=== PATIENT | male | born 1970 | race Caucasian/White ===

== ENCOUNTER → 2018-10-09 | Outpatient (CLI) | payer BC ==
--- NOTE | 2018-10-09 09:58 | MRI ---
Study: MRI of the Left Shoulder. Indication: ROTATOR CUFF TEAR Technique: Multiplanar, multi sequence MRI of the left shoulder was obtained without intravenous contrast. Comparison: None. Findings: Moderate hypertrophic AC joint osteoarthritis. Type I acromion with mild lateral downsloping. Small-volume subacromial/subdeltoid bursal fluid. Supraspinatus and infraspinatus tendinosis noted with irregular intermediate grade interstitial tearing extending from the mid supraspinatus tendon insertion to the mid infraspinatus tendon insertion. The tear defect measures approximately 24 mm AP by up to 20 mm transverse as the tear does delaminate medially into the critical zone and myotendinous junction at the level of the anterior infraspinatus tendon. No full-thickness tear or tendon retraction. Mild cystic change of the adjacent greater tuberosity. Subscapularis tendinosis with irregular low-grade interstitial tearing superiorly. Teres minor tendon intact. Rotator cuff musculature normal without atrophy, fatty infiltration, or intramuscular edema. Intracapsular long head biceps tendinosis. Circumferential labral truncation and degeneration, most pronounced.. Minimal glenohumeral joint osteoarthritis with small joint effusion. No acute fracture. Impression: Supraspinatus supraspinatus tendinosis with irregular intermediate grade interstitial tearing throughout both tendons as detailed above. Subscapularis tendinosis with low-grade interstitial tearing superiorly. Intracapsular long head biceps tendinosis. Circumferential labral truncation and degeneration, most pronounced superiorly. Minimal glenohumeral joint osteoarthritis with a small joint effusion. Moderate hypertrophic AC joint osteoarthritis. Electronically signed by: Mc Alarcon MD 10/09/2018 9:56 AM CDT
== END ==
LOC: MRI 06:46
PROVIDERS: ATTEND Family Medicine
DX: M75.122 Complete rotator cuff tear or rupture of left shoulder, not specified as traumatic (principal); M75.41 Impingement syndrome of right shoulder; M19.012 Primary osteoarthritis, left shoulder; M75.22 Bicipital tendinitis, left shoulder

== ENCOUNTER → 2019-02-28 | Outpatient (CLI) | payer BC | LOC: LAB.O 14:54 | PROVIDERS: ATTEND Orthopaedic Surgery | DX: Z01.818 Encounter for other preprocedural examination (principal) ==

== ENCOUNTER 2019-03-19 06:15 | Day surgery (SDC) | payer BC ==
[2019-03-19] MEDS ORDERED: LACTATED RINGERS 1,000 ML ONE (07:02)
[2019-03-19] MEDS ORDERED: SODIUM CHL 0.9% 100ML MINI-BAG 100 ML IVPB ONE (07:02)
[2019-03-19] MEDS ORDERED: ceFAZolin SODIUM 1 GM VIAL ONE ×2 (07:03→08:18)
[2019-03-19] MEDS ORDERED: BUPIVACAINE LIPOSOME 13.3 MG/ML VIAL INJ ONE ×2 (08:18→09:47)
[2019-03-19] MEDS ORDERED: BUPIVACAINE 0.5% 30 ML VIAL INJ ONE (08:18)
[2019-03-19] MEDS ORDERED: VANCOMYCIN HCL INJ 1,000 MG VIAL IVPB ONE (08:18)
[2019-03-19] MEDS ORDERED: fentaNYL CITRATE INJ 50 MCG/ML AMP ONE (08:30)
[2019-03-19] MEDS ORDERED: MIDAZOLAM INJ 5 MG/5 ML VIAL ONE (08:30)
[2019-03-19] MEDS ORDERED: ROCURONIUM BROMIDE 10 MG/ML VIAL ONE (08:30)
[2019-03-19] MEDS ORDERED: DEXAMETHASONE INJ 10 MG/ML VIAL IV ONE (10:00)
[2019-03-19] MEDS ORDERED: PROPOFOL 200 MG/20 ML VIAL IV ONE (10:00)
[2019-03-19] MEDS ORDERED: LIDOCAINE 1% 10 ML VIAL INJ ONE (10:00)
[2019-03-19] MEDS ORDERED: raNITIdine HCL INJ 25 MG/ML VIAL IV ONE (10:00)
[2019-03-19] MEDS ORDERED: ePHEDrine SULF 50 MG/ML IV ONE (10:00)
[2019-03-19] MEDS ORDERED: KETAMINE HCL 100 MG/ML VIAL ONE (10:09)
[2019-03-19] MEDS: BUPIVACAINE 0.5% 30 ML VIAL INJ ONE (10:12)
[2019-03-19] MEDS: BUPIVACAINE LIPOSOME 13.3 MG/ML VIAL INJ ONE (10:12)
[2019-03-19] MEDS ORDERED: SODIUM CHLORIDE 0.9% 100ML 100 ML IVPB ONE (11:00)
[2019-03-19] MEDS: ceFAZolin SODIUM 1 GM VIAL INJ ONE (11:15)
[2019-03-19] MEDS: VANCOMYCIN HCL INJ 1,000 MG VIAL IVPB ONE (11:15)
[2019-03-19] MEDS ORDERED: SUGAMMADEX SODIUM 200 MG/2 ML VIAL IV ONE (11:46)
[2019-03-19] MEDS ORDERED: LEVALBUTEROL NEBS 1.25 MG/3 ML VIAL NEB ONE (12:06)
[2019-03-19] MEDS: LEVALBUTEROL NEBS 1.25 MG/3 ML VIAL NEB ONE (12:09)
[2019-03-19] MEDS: ELECTROLYTE-A 1,000 ML IVS ONE (12:13)
[2019-03-19 13:05] VITALS: BP 129/87; TEMP 98.5; O2SAT 90
--- NOTE | 2019-03-22 09:49 | OP ---
DATE OF PROCEDURE: 03/19/19 PREOPERATIVE DIAGNOSIS: 1. Subacromial impingement. 2. Acromioclavicular arthritis. 3. Bursitis. POSTOPERATIVE DIAGNOSIS: 1. Subacromial impingement. 2. Acromioclavicular arthritis. 3. Bursitis. PROCEDURE: 1. Subacromial decompression and distal clavicle resection. SURGEON: Burke Mcarthur MD. WAITER/WAITRESS ROOM SERVICE: Celio Chowdhury CST, SA[facility]. ANESTHESIA: General anesthesia. COMPLICATIONS: None. FINDINGS: 1. Advanced arthritis of the acromioclavicular joint. 2. Hypertrophic bursitis. 3. Overhanging acromion. 4. Intact rotator cuff. INDICATION: Mr. Cueto has a history of pain associated with range of motion and activity. He has had conservative measures, however, they have failed go give him relief. Because of his ongoing symptoms, he has requested operative intervention. After discussing the risks, benefits and alternatives to that, the patient has given informed consent for subacromial decompression and distal clavicle resection. PROCEDURE: The patient was brought to the Operating Room and placed in the supine position. General anesthesia was induced and he was transitioned into the beach chair position. The patient's arm and shoulder were sterilely prepped and draped. Following prepping and draping, an incision was made over the lateral border of the acromion. Dissection was carried down to the acromioclavicular joint. Full thickness periosteal flaps were developed. Following development of the periosteal flaps, the acromioclavicular joint was identified and the distal approximately 8 to 10 mm of the clavicle was excised. Care was taken to ensure removal of all bony debris. The periosteal flaps were reapproximated. A split was made between the anterior and middle heads of the deltoid. The subacromial bursa was excised and acromioplasty was performed. The rotator cuff was identified and was noted to be intact. The wound was very thoroughly irrigated and reapproximated of the deltoid was performed. The wound was closed with a combination of running and interrupted subcuticular stitches. Sterile dressing was placed. The patient was placed in a sling. The patient was awoken from anesthesia and taken to Recovery. POSTOPERATIVE PLAN: He will remain in the sling and followup with us in approximately 2 days. #[id number] MTDD
== END 2019-03-19 13:55 | disposition home or self-care (01) ==
LOC: AMB 06:15
PROVIDERS: ATTEND Orthopaedic Surgery
DX: M75.42 Impingement syndrome of left shoulder (principal); M13.812 Other specified arthritis, left shoulder; M75.52 Bursitis of left shoulder; F17.210 Nicotine dependence, cigarettes, uncomplicated; Z79.899 Other long term (current) drug therapy
CPT/HCPCS: 00450; 0232T; 23120; 23130; 80307; J0690; J1100; J2250; J2780; J3010; J3370; J3490; J7050; J7120; J7614